=== PATIENT | female | born 1965 | race Caucasian/White ===

== ENCOUNTER 2020-12-15 13:04 | Emergency (ER) | payer MEDICARE, OTHER ==
[2020-12-15 14:19] LABS: HEMOGLOBIN 14.8 gm/dl (12.3-15.3); RED BLOOD COUNT 5.05 M/UL (4.00-5.10); WHITE BLOOD COUNT 6.6 K/UL (4.5-11.0)
[2020-12-15 14:43] LABS: BUN/CREATININE RATIO 12 (0-10)
[2020-12-15] MEDS ORDERED: PHENERGAN 12.12.5 MG PR (16:19)
== END 2020-12-15 18:15 | disposition home or self-care (01) ==
LOC: ER1 13:04
PROVIDERS: Physician Assistant
DX: R11.2 Nausea with vomiting, unspecified (principal); R19.7 Diarrhea, unspecified; R53.1 Weakness; Z90.89 Acquired absence of other organs; Z90.49 Acquired absence of other specified parts of digestive tract; Z90.410 Acquired total absence of pancreas; Z88.8 Allergy status to other drugs, medicaments and biological substances
CPT/HCPCS: 71045; 80053; 81001; 82550; 82553; 83690; 83874; 83880; 84484; 85025; 87086; 93005; 96374; 99285; J2550; J7040

== ENCOUNTER 2020-12-19 14:54 | Inpatient (IN) | payer MEDICARE, OTHER ==
[~2020-12-19] VITALS: Ht 160 cm; Wt 123.8 kg
[~2020-12-19 14:54] MED LIST: PHENERGAN 12.12.5 MG PR
[2020-12-19 16:16] LABS: HEMOGLOBIN 13.4 gm/dl (12.3-15.3); RED BLOOD COUNT 4.64 M/UL (4.00-5.10); WHITE BLOOD COUNT 12.1 K/UL (4.5-11.0)
[2020-12-19 16:45] LABS: BUN/CREATININE RATIO 22 (0-10)
[2020-12-19] MEDS ORDERED: HYDROCODON-ACE1 EAC2 PO (23:24)
[2020-12-19] MEDS ORDERED: AZITHROMYCIN250 MG PO (23:24)
[2020-12-19] MEDS ORDERED: ATORVASTATIN CA40 MG PO (23:25)
[2020-12-19] MEDS ORDERED: FAMOTIDINE40 MG PO (23:25)
[2020-12-19] MEDS ORDERED: DULOXETINE HCL60 MG PO (23:26)
[2020-12-19] MEDS ORDERED: ALLERGY RELIEF10 M1 PO (23:26)
[2020-12-19] MEDS ORDERED: PRECOSE 50 MG T50 MG PO (23:27)
[2020-12-19] MEDS ORDERED: ALBUTEROL0.63 MG/3 INH (23:28)
[2020-12-19] MEDS ORDERED: ISOSORBIDE MONO30 MG PO (23:29)
[2020-12-19] MEDS ORDERED: K-DUR TAB 20 M20 MEQ PO (23:29)
[2020-12-19] MEDS ORDERED: MELOXICAM7.5 MG PO (23:29)
[2020-12-19] MEDS ORDERED: MONTELUKAST SOD10 MG PO (23:30)
[2020-12-19] MEDS ORDERED: TIZANIDINE HCL4 MG PO (23:30)
[2020-12-19] MEDS ORDERED: CYANOCOBAL1000 MCG/1 INJ (23:31)
[2020-12-19] MEDS ORDERED: FUROSEMIDE40 MG PO (23:31)
[2020-12-19] MEDS ORDERED: IRBESARTAN75 MG PO (23:31)
[2020-12-19] MEDS ORDERED: METHOTREXATE T2.5 MG PO (23:32)
[2020-12-19] MEDS ORDERED: WELLBUTRIN XL300 M1 PO (23:33)
[2020-12-19] MEDS ORDERED: HUMIRA PEN40 MG/0.4 SQ (23:34)
[2020-12-19] MEDS ORDERED: LIORESAL TAB 1010 MG PO (23:35)
[2020-12-19] MEDS ORDERED: CITALOPRAM HBR40 MG PO (23:35)
[2020-12-19] MEDS ORDERED: GABAPENTIN800 MG PO (23:36)
[2020-12-19] MEDS ORDERED: SUMATRIPTAN SU100 MG PO (23:37)
[2020-12-19] MEDS ORDERED: QUETIAPINE FUMA50 MG PO (23:38)
[2020-12-19] MEDS ORDERED: LEVOTHYROXINE75 MCG PO (23:39)
[2020-12-19] MEDS ORDERED: LEFLUNOMIDE10 MG PO (23:39)
[2020-12-19] MEDS ORDERED: COREG 12.5MG12.5 MG PO (23:40)
[2020-12-19] MEDS ORDERED: FOLIC ACID 1 MG1 MG PO (23:41)
[2020-12-19] MEDS ORDERED: BUPROPION HCL100 MG PO (23:41)
[2020-12-19] MEDS ORDERED: DITROPAN 5 MG TA5 MG PO (23:42)
[2020-12-19] MEDS ORDERED: VITAMIN D21250 MCG PO (23:43)
[2020-12-19] MEDS ORDERED: PREDNISONE10 MG PO (23:43)
[2020-12-20 04:44] LABS: HEMOGLOBIN 13.6 gm/dl (12.3-15.3); RED BLOOD COUNT 4.74 M/UL (4.00-5.10)
[2020-12-20 04:51] LABS: BUN/CREATININE RATIO 26 (0-10)
--- NOTE | 2020-12-20 12:53 | NUR ---
PATIENT LOST IV AND WAS GETTING STUCK FOR ACCESS THROUGH LUNCH. MISSED FSBS, GOT A LATE LUNCH TRAY. WILL CHECK PRIOR TO DINNER TRAY.
[2020-12-21 06:21] LABS: HEMOGLOBIN 12.2 gm/dl (12.3-15.3)
[2020-12-21 06:23] LABS: RED BLOOD COUNT 4.18 M/UL (4.00-5.10); WHITE BLOOD COUNT 11.1 K/UL (4.5-11.0)
[2020-12-21 06:55] LABS: BUN/CREATININE RATIO 30 (0-10)
[2020-12-22 03:52] LABS: HEMOGLOBIN 11.9 gm/dl (12.3-15.3); RED BLOOD COUNT 4.13 M/UL (4.00-5.10); WHITE BLOOD COUNT 10.9 K/UL (4.5-11.0)
[2020-12-22 04:10] LABS: BUN/CREATININE RATIO 30 (0-10)
[2020-12-23 03:57] LABS: HEMOGLOBIN 12.1 gm/dl (12.3-15.3); RED BLOOD COUNT 4.2 M/UL (4.00-5.10); WHITE BLOOD COUNT 10.5 K/UL (4.5-11.0)
[2020-12-23 04:48] LABS: BUN/CREATININE RATIO 32 (0-10)
--- NOTE | 2020-12-23 10:53 | NUR ---
12/23/2020 1030 ROOM AIR OXYGEN SAT 87%
[2020-12-24 05:19] LABS: BUN/CREATININE RATIO 32 (0-10)
[2020-12-25 07:11] LABS: BUN/CREATININE RATIO 31 (0-10)
[2020-12-26] MEDS ORDERED: ALBUTEROL0.63 MG/3 INH (13:13)
[2020-12-26] MEDS ORDERED: BUDESONIDE0.5 MG/2 M INH (13:13)
[2020-12-26] MEDS ORDERED: MEDROL DOSEPAK 24 MG PO (13:15)
[2020-12-26] MEDS ORDERED: PHENERGAN 12.12.5 MG PR (15:45)
[2020-12-26] MEDS ORDERED: ROBITUSSIN DM UD5 ML PO (15:45)
[2020-12-26] MEDS ORDERED: TESSALON PERLE100 MG PO (15:45)
[2020-12-26] MEDS ORDERED: PHENERGAN 12.12.5 M1 PO (16:06)
== END 2020-12-26 16:38 | disposition home or self-care (01) | DRG 177 ==
LOC: ER1 14:54 → CDU 17:18 → MED SURG 4 17:18
PROVIDERS: Internal Medicine; Preventive Medicine Occupational Medicine; ADMIT Family Medicine
PROC: XW033E5 Introduction of Remdesivir Anti-infective into Peripheral Vein, Percutaneous Approach, New Technology Group 5 (ICD-10-PCS; principal; 2020-12-19)
PROC: 8E0ZXY6 Isolation (ICD-10-PCS; 2020-12-19)
PROC: XW13325 Transfusion of Convalescent Plasma (Nonautologous) into Peripheral Vein, Percutaneous Approach, New Technology Group 5 (ICD-10-PCS; 2020-12-19)
DX: U07.1 COVID-19 (principal); J12.82 Pneumonia due to coronavirus disease 2019; J96.01 Acute respiratory failure with hypoxia; J44.1 Chronic obstructive pulmonary disease with (acute) exacerbation; J44.0 Chronic obstructive pulmonary disease with (acute) lower respiratory infection; D84.9 Immunodeficiency, unspecified; I50.22 Chronic systolic (congestive) heart failure; F11.20 Opioid dependence, uncomplicated; E87.2 Acidosis; I42.9 Cardiomyopathy, unspecified; Z68.42 Body mass index [BMI] 45.0-49.9, adult; R07.81 Pleurodynia; G43.909 Migraine, unspecified, not intractable, without status migrainosus; E03.9 Hypothyroidism, unspecified; E11.65 Type 2 diabetes mellitus with hyperglycemia; G89.29 Other chronic pain; I11.0 Hypertensive heart disease with heart failure; E66.01 Morbid (severe) obesity due to excess calories; E87.6 Hypokalemia; Z95.0 Presence of cardiac pacemaker; Z90.49 Acquired absence of other specified parts of digestive tract; Z88.2 Allergy status to sulfonamides; Z88.8 Allergy status to other drugs, medicaments and biological substances; Z88.6 Allergy status to analgesic agent; Z91.040 Latex allergy status
CPT/HCPCS: 0240U; 36415; 36600; 71045; 71275; 80048; 80053; 81001; 82550; 82553; 82803; 82962; 83036; 83605; 83690; 83874; 83880; 84484; 84703; 85025; 85379; 85652; 86140; 86900; 86901; 86927; 87040; 87086; 93005; 94640; 94664; 94760; 96374; 99285; J0696; J1100; J1650; J1885; J2550; J7030; J7040; J7070; Q9967

== ENCOUNTER 2021-06-25 19:00 | Emergency (ER) | payer MEDICARE, OTHER ==
[~2021-06-25 19:00] MED LIST changes: +ALBUTEROL0.63 MG/3 INH; +ALLERGY RELIEF10 M1 PO; +ATORVASTATIN CA40 MG PO; +AZITHROMYCIN250 MG PO; +BUDESONIDE0.5 MG/2 M INH; +BUPROPION HCL100 MG PO; +CITALOPRAM HBR40 MG PO; +COREG 12.5MG12.5 MG PO; +CYANOCOBAL1000 MCG/1 INJ; +DITROPAN 5 MG TA5 MG PO; +DULOXETINE HCL60 MG PO; +FAMOTIDINE40 MG PO; +FOLIC ACID 1 MG1 MG PO; +FUROSEMIDE40 MG PO; +GABAPENTIN800 MG PO; +HUMIRA PEN40 MG/0.4 SQ; +HYDROCODON-ACE1 EAC2 PO; +IRBESARTAN75 MG PO; +ISOSORBIDE MONO30 MG PO; +K-DUR TAB 20 M20 MEQ PO; +LEFLUNOMIDE10 MG PO; +LEVOTHYROXINE75 MCG PO; +LIORESAL TAB 1010 MG PO; +MEDROL DOSEPAK 24 MG PO; +MELOXICAM7.5 MG PO; +METHOTREXATE T2.5 MG PO; +MONTELUKAST SOD10 MG PO; +PHENERGAN 12.12.5 M1 PO; +PRECOSE 50 MG T50 MG PO; +PREDNISONE10 MG PO; +QUETIAPINE FUMA50 MG PO; +ROBITUSSIN DM UD5 ML PO; +SUMATRIPTAN SU100 MG PO; +TESSALON PERLE100 MG PO; +TIZANIDINE HCL4 MG PO; +VITAMIN D21250 MCG PO; +WELLBUTRIN XL300 M1 PO
[2021-06-25] MEDS ORDERED: CEPHALEXIN500 M1 PO (19:49)
== END 2021-06-25 20:08 | disposition home or self-care (01) ==
LOC: ER1 19:00
DX: S61.111A Laceration without foreign body of right thumb with damage to nail, initial encounter (principal); E11.9 Type 2 diabetes mellitus without complications; I10 Essential (primary) hypertension; I48.91 Unspecified atrial fibrillation; Z23 Encounter for immunization; Z95.0 Presence of cardiac pacemaker; Z88.6 Allergy status to analgesic agent; Z88.1 Allergy status to other antibiotic agents; Z88.8 Allergy status to other drugs, medicaments and biological substances; Z86.16 Personal history of COVID-19; W26.8XXA Contact with other sharp object(s), not elsewhere classified, initial encounter; Y92.009 Unspecified place in unspecified non-institutional (private) residence as the place of occurrence of the external cause
CPT/HCPCS: 90471; 90715; 99283

== ENCOUNTER → 2021-12-16 | Outpatient (CLI) | payer MEDICARE, OTHER ==
[~2021-12-16] MED LIST changes: +CEPHALEXIN500 M1 PO
== END ==
LOC: KOH-I 12-09 13:00
DX: R91.8 Other nonspecific abnormal finding of lung field (principal)
CPT/HCPCS: 71250

== ENCOUNTER → 2022-01-26 | Outpatient (CLI) | payer MEDICARE, OTHER | LOC: KOH-I 08:27 | DX: J32.8 Other chronic sinusitis (principal); H70.92 Unspecified mastoiditis, left ear | CPT/HCPCS: 70486 ==